=== PATIENT | male | born 1940 | race Caucasian/White ===

== ENCOUNTER → 2020-02-21 | Outpatient (CLI) | payer MEDICARE ==
[~2020-02-21] MED LIST: ADVIL100 M2; ALENDRONATE SOD70 MG PO; ASPIRIN LOW DOS81 MG PO; CALCIUM 1,0001 EACH PO; CO Q-10150 MG PO; ENALAPRIL MALEA10 MG PO; FAMOTIDINE20 MG PO; HYDROCHLOROTHIA25 MG PO; LOSARTAN POTAS100 MG PO; METAMUCIL PACK1 EACH PO; OMEPRAZOLE40 MG PO; VITAL JOINT; Z.0.MULTIVITAMINS1 E; Z.0.SIMVASTATIN80 MG PO; [UNRECOGNIZED DRUG - OTHER]; [UNRECOGNIZED DRUG - OTHER] PO
== END ==
LOC: RESP 11:31
PROVIDERS: ATTEND Internal Medicine
DX: R06.09 Other forms of dyspnea (principal)
CPT/HCPCS: 94060; 94727; 94729

== ENCOUNTER → 2020-02-27 | Outpatient (CLI) | payer MEDICARE ==
--- NOTE | 2020-02-27 11:07 | Diagnostic Imaging Report ---
EXAM: CT Chest WITHOUT intravenous contrast 02/27/2020 9:00 AM INDICATION: Shortness of breath COMPARISON: Chest CT 11/19/2019 TECHNIQUE: Chest was scanned utilizing a multidetector helical scanner from the lung apex through the level of the adrenal glands without administration of IV contrast. Coronal and sagittal reformations were obtained. Routine protocol was performed. IV CONTRAST: None RADIATION DOSE: Total DLP: 555 mGy*cm. Dose modulation, iterative reconstruction, and/or weight based adjustment of the mA/kV was utilized to reduce the radiation dose to as low as reasonably achievable. COMPLICATIONS: None FINDINGS: LINES/ TUBES: None. LUNGS AND AIRWAYS: The central airways are patent. Biapical pleural parenchymal thickening/scarring. No focal consolidation or pulmonary edema. Unchanged mild central bronchiectasis. PLEURA: The pleural spaces are clear. HEART AND MEDIASTINUM: The thyroid gland is normal. No mediastinal, hilar or axillary lymphadenopathy. The heart is normal in size.. There is no pericardial effusion. Scattered atherosclerotic calcifications of the thoracic aorta and proximal great vessels. UPPER ABDOMEN: Small right and left hepatic hypodensities measure simple attenuation and likely represent cysts. No acute findings. BONES: No acute osseous injury. No suspicious lytic or blastic lesions. SOFT TISSUES: Unremarkable. IMPRESSION: No focal pneumonia or pulmonary edema. Hyperinflated lungs and unchanged mild central bronchiectasis Signed by: Osmel Montemayor MD on 02/27/2020 11:04 AM
== END ==
LOC: CT 08:34
PROVIDERS: ATTEND Internal Medicine
DX: R06.09 Other forms of dyspnea (principal)
CPT/HCPCS: 71250

== ENCOUNTER → 2021-06-14 | Outpatient (CLI) | payer MEDICARE | LOC: CT 07:43 | PROVIDERS: ATTEND Internal Medicine | DX: J92.0 Pleural plaque with presence of asbestos (principal) | CPT/HCPCS: 71250 ==